=== PATIENT | female | born 1945 | race Caucasian/White ===

== ENCOUNTER → 2022-12-17 | Outpatient (CLI) | payer MEDICARE, OTHER ==
[2022-12-18 02:43] LABS: HCT 38.1 % (37.2-46.3); MCH 28.9 pg (27.0-32.0); MCHC 31.5 g/dL (32.0-37.0); MCV 91.8 fL (80.0-97.0); Mean Platelet Volume 10.4 fL (9.5-12.2); NRBC Per 100 WBC 0 /100 WBCS (0.0-0.0); Platelet Count 218 X 10*3/uL (140-440); RBC 4.15 X 10*6/uL (4.10-5.20); RDW 13.5 % (11.5-14.5); WBC 6.11 X 10*3/uL (4.50-10.00)
[2022-12-18 02:50] LABS: African American GFR (CKD) 56.9 (60.0-200.0); Anion Gap 12.6 mmol/L (10.00-18.00); Blood Urea Nitrogen 30.4 mg/dL (9.0-27.0); Carbon Dioxide 25.4 mmol/L (20.0-27.5); Non-African American GFR(CKD) 49.1 (60.0-200.0); Potassium 4.4 mmol/L (3.5-5.5)
== END | disposition home or self-care (01) ==
LOC: LABPAT 16:16
PROVIDERS: ATTEND Internal Medicine Cardiovascular Disease
DX: Z01.812 Encounter for preprocedural laboratory examination (principal); I35.0 Nonrheumatic aortic (valve) stenosis
CPT/HCPCS: 80051; 82565; 84520; 85027

== ENCOUNTER 2022-12-29 07:52 | Day surgery (SDC) | payer MEDICARE, OTHER ==
[2022-12-25 12:09] VITALS: BMI 26.1
[~2022-12-29 07:52] MED LIST: ALPRAZolam 0.25 MG TAB PO PRN; ALPRAZolam 0.5 MG TAB PO PRN; ASPIRIN 325 MG TAB PO ONE; ATORVASTATIN 80 MG TAB PO ONE; HEPARIN SODIUM,PORCINE 10,000 UNIT in SODIUM CHLORIDE 0.9% 1,000 ML IRRIGATION PRN; HEPARIN SODIUM,PORCINE 2,500 UNIT in SODIUM CHLORIDE 0.9% 250 ML IRRIGATION PRN; NITROGLYCERIN SL TABS 0.4 MG TAB SUBLINGUAL PRN; SODIUM CHLORIDE 0.9% 1,000 ML in EMPTY BAG 1 BAG IV SCH
[2022-12-29] MEDS ORDERED: SODIUM CHLORIDE 0.9% 1,000 ML IV ONE (08:20)
[2022-12-29 08:39] VITALS: RESP 16; TEMP 97.8
[2022-12-29 08:46] LABS: INR 1.2 (<1.2); Prothrombin Time 12.2 sec (9.0-12.0)
[2022-12-29] MEDS ORDERED: VERAPAMIL 2.5 MG/ML 2 ML AMP ONE (11:03)
[2022-12-29] MEDS ORDERED: IV FLUID CONTINUATION 600 ML IV ONE (11:22)
[2022-12-29] MEDS ORDERED: BENZOCAINE SPRAY 1 CAN TOPICAL ONE (11:27)
[2022-12-29] MEDS ORDERED: MIDAZOLAM 2 MG/2 ML VIAL IV ONE ×2 (11:28→11:37)
[2022-12-29] MEDS ORDERED: LIDOCAINE 1% INJ 10MG/ML (20 ML MDV) ONE (11:41)
[2022-12-29] MEDS ORDERED: LIDOCAINE 1% INJ 10MG/ML (20 ML MDV) SQ ONE (11:41)
[2022-12-29] MEDS ORDERED: IOPAMIDOL-370 100ML BTL INJ ONE (12:28)
[2022-12-29 21:06] VITALS: BP 155/67; PULSE 56
--- NOTE | 2023-01-14 00:44 | ECHOT ---
TRANSESOPHAGEAL ECHOCARDIOGRAM INDICATIONS: Aortic stenosis. PROCEDURE NOTE: After obtaining informed consent, transesophageal echocardiogram was performed in left lateral position using an Omniplane probe. Local and IV sedation were obtained and total sedation time was 10 minutes. FINDINGS: 1. Aortic valve is heavily calcified with severe restriction in leaflet mobility, by planimetry the valve area is 0.6 squared cm. 2. Left ventricle has normal size and systolic function. There are lowj-mg-eaggiqwh atherosclerotic changes noted within the aorta. There is mild mitral and tricuspid regurgitation noted. There is no evidence of ihps-fv-[id number] shunt by color-flow Doppler or rsnnw-ad-huve shunt by agitated saline contrast study. CONCLUSION: Severe aortic stenosis with a valve area of 0.6 squared cm by planimetry. MMODL / IJN: [id number] /
--- NOTE | 2023-01-14 08:30 | CC ---
CARDIAC CATHETERIZATION REPORT PROCEDURE PERFORMED: Left heart catheterization. INDICATIONS: Aortic stenosis. PROCEDURE NOTE: After obtaining informed consent, left heart catheterization and coronary angiogram were performed via the right femoral artery using standard Sallie catheters. The patient tolerated the procedure well without any obvious immediate complications. The patient received moderate conscious sedation. Total sedation time was 24 minutes. Left ventricular hemodynamics were obtained by Dr. Ghosh, the on-call ore crushing dust collector. FINDINGS: 1. Hemodynamics: Left ventricular end-diastolic pressure is 24 mm and the peak-to- peak be gradient across the aortic valve is 41 mm, consistent with moderate aortic stenosis. 2. Left Ventriculogram: Left ventriculogram is not performed. 3. Angiographic Data: a.Left Main Coronary Artery: Left main coronary artery appears calcified but is free of significant stenosis. Divides into left anterior descending coronary artery and circumflex coronary artery. Circumflex coronary artery shows mild nonobstructive disease involving LAD. Circumflex coronary artery and its branches are free of significant stenosis. Right coronary artery is a large dominant vessel and is free of significant disease. CONCLUSIONS: 1. Mild nonobstructive CAD. 2. Moderate aortic stenosis. MMODL / IJN: [id number] /
== END 2022-12-29 16:05 | disposition home or self-care (01) ==
LOC: CATHCVL 07:52
PROVIDERS: ATTEND Internal Medicine Cardiovascular Disease
DX: I25.10 Atherosclerotic heart disease of native coronary artery without angina pectoris (principal); I35.0 Nonrheumatic aortic (valve) stenosis; Z88.5 Allergy status to narcotic agent; F17.210 Nicotine dependence, cigarettes, uncomplicated; Z88.8 Allergy status to other drugs, medicaments and biological substances; Z88.1 Allergy status to other antibiotic agents; I10 Essential (primary) hypertension; E78.2 Mixed hyperlipidemia; E07.9 Disorder of thyroid, unspecified; Z79.01 Long term (current) use of anticoagulants; Z79.899 Other long term (current) drug therapy; Z79.890 Hormone replacement therapy
CPT/HCPCS: 93312; 93325; 93458; 85610; 99152; 99153; C1769 ×4; C1760; C1894; J2250; J2001; Q9967